=== PATIENT | male | born 1965 | race Caucasian/White ===

== ENCOUNTER 2016-10-09 08:18 | Emergency (ER) | payer MEDICARE, OTHER ==
[~2016-10-09] VITALS: Ht 182.9 cm; Wt 125.0 kg
[~2016-10-09 08:18] MED LIST: ALBU0.086 INH; AMLO5TAB22 PO; BACL20TA PO; BUDE3CAP PO; HUMI20KI SQ; KCL10C PO; LASI20TA PO; LISI-363 PO; MEDR4PAK3 PO; METF-324 PO; NORT10CA PO; NORV10TA PO; OMEP20TA39 PO; PERC5TAB12 PO; PRAV10 PO; PREV4POW; TIOT18I INH; ZOLP10TA3 PO
[2016-10-09 08:41] VITALS: BP 138/81; PULSE 61; RESP 20; TEMP 97.7; O2SAT 95
[2016-10-09] MEDS ORDERED: HUMI20KI SQ (08:46)
[2016-10-09] MEDS ORDERED: AMBI10TA PO (08:46)
--- NOTE | 2016-10-09 08:57 | PD ---
HPI Chief Complaint: Abdominal Pain Time Seen by Provider: 08:35 Travel History International Travel<30 days: No Contact w/Intl Traveler<30days: No Traveled to known affect area: No History of Present Illness HPI This patient complains of abdominal pain and constipation and nausea. He is worried about obstruction. He has history of Crohn's and has had multiple abdominal surgeries. Symptom severity is moderate. Duration one week. No alleviating factors. No fevers. 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) Tobacco Use: Yes (1 PPD) Substance Use: No Allergies-Medications (Allergen,Severity, Reaction): Coded Allergies: Morphine (Unverified Adverse Reaction, Unknown, AGITATION , 10/09/16) Reported Meds & Prescriptions Reported Meds & Active Scripts Active Reported [Albuterol Sulfate] Mg PO QID NEB Acidophilus/Pectin (Lactobacillus Acidophilus-Pect) 1 Cap Cap 1 PO BID [vitamin B Inj] 1 INJ Oxycodone-Acetaminophen 5-325 mg Tab 1 Tab PO Q6H PRN Baclofen 10 Mg Tab 10 Mg PO BID Omeprazole 20 Mg Tab 20 Mg PO DAILY Metformin (Metformin HCl) 1,000 Mg Tab 1,000 Mg PO BIDPC With meals Lisinopril 40 Mg Tab 40 Mg PO DAILY Pravastatin 40 Mg Tab 40 Mg PO DAILY Diltiazem (Diltiazem HCl) 120 Mg Tab 240 Mg PO DAILY Ambien (Zolpidem Tartrate) 10 Mg Tab 10 Mg PO HS PRN Humira 2-Pack Inj (Adalimumab 2-Pack Inj) 20 Mg/0.4 Ml Syr 20 Mg SQ Q14D Review of Systems General / Constitutional: No: Fever Eyes: No: Visual changes HENT: No: Headaches Cardiovascular: No: Chest Pain or Discomfort Respiratory: No: Shortness of Breath Gastrointestinal: Positive: Nausea, Abdominal Pain, Constipation Genitourinary: No: Dysuria Musculoskeletal: No: Pain Skin: No Rash Neurologic: No: Weakness Psychiatric: No: Depression Endocrine: No: Polydipsia Hematologic/Lymphatic: No: Easy Bruising Physical Exam Narrative GENERAL: Well-nourished, well-developed patient in no apparent distress. SKIN: Warm and dry. HEAD: Atraumatic. Normocephalic. EYES: Pupils equal and round. No scleral icterus. No injection or drainage. ENT: No nasal bleeding or discharge. Mucous membranes pink and moist. NECK: Trachea midline. No JVD. CARDIOVASCULAR: Regular rate and rhythm. No murmur appreciated. RESPIRATORY: No accessory muscle use. Clear to auscultation. Breath sounds equal bilaterally. GASTROINTESTINAL: Abdomen soft, mild left lower quadrant tenderness, no rebound or guarding. Hepatic and splenic margins not palpable. Prominent bowel sounds heard MUSCULOSKELETAL: No obvious deformities. No clubbing. No cyanosis. No edema. NEUROLOGICAL: Awake and alert. No obvious cranial nerve deficits. Motor grossly within normal limits. Normal speech. PSYCHIATRIC: Appropriate mood and affect; insight and judgment normal. Data Data Last Documented VS Vital Signs Date Time Temp Pulse Resp B/P Pulse Ox O2 Delivery O2 Flow Rate FiO2 10/09/16 09:09 96 Room Air 10/09/16 08:41 97.7 61 20 138/81 Orders Complete Blood Count With Diff (10/09/16 08:51) Comprehensive Metabolic Panel (10/09/16 08:51) Lipase (10/09/16 08:51) Prothrombin Time / Inr (Pt) (10/09/16 08:51) Act Partial Throm Time (Ptt) (10/09/16 08:51) Ct Abd/Pel W Iv Contrast(Rout) (10/09/16 08:51) Iv Access Insert/Monitor (10/09/16 08:51) Ecg Monitoring (10/09/16 08:51) Oximetry (10/09/16 08:51) NPO (10/09/16 08:51) Ondansetron Inj (Zofran Inj) (10/09/16 09:00) Sodium Chloride 0.9% Flush (Ns Flush) (10/09/16 09:00) Sodium Chlor 0.9% 1000 Ml Inj (Ns 1000 M (10/09/16 09:00) Iohexol 350 Inj (Omnipaque 350 Inj) (10/09/16 09:15) Labs Laboratory Tests Test 10/09/16 09:07 White Blood Count 6.5 TH/MM3 Red Blood Count 3.96 MIL/MM3 Hemoglobin 13.5 GM/DL Hematocrit 38.7 % Mean Corpuscular Volume 97.6 FL Mean Corpuscular Hemoglobin 34.1 PG Mean Corpuscular Hemoglobin 35.0 % Concent Red Cell Distribution Width 13.0 % Platelet Count 257 TH/MM3 Mean Platelet Volume 8.1 FL Neutrophils (%) (Auto) 55.5 % Lymphocytes (%) (Auto) 29.1 % Monocytes (%) (Auto) 9.3 % Eosinophils (%) (Auto) 5.2 % Basophils (%) (Auto) 0.9 % Neutrophils # (Auto) 3.6 TH/MM3 Lymphocytes # (Auto) 1.9 TH/MM3 Monocytes # (Auto) 0.6 TH/MM3 Eosinophils # (Auto) 0.3 TH/MM3 Basophils # (Auto) 0.1 TH/MM3 CBC Comment DIFF FINAL Differential Comment Prothrombin Time 10.7 SEC Prothromb Time International 1.0 RATIO Ratio Activated Partial 23.6 SEC Thromboplast Time Sodium Level 136 MEQ/L Potassium Level 4.2 MEQ/L Chloride Level 102 MEQ/L Carbon Dioxide Level 25.0 MEQ/L Anion Gap 9 MEQ/L Blood Urea Nitrogen 10 MG/DL Creatinine 1.10 MG/DL Estimat Glomerular Filtration 71 ML/MIN Rate Random Glucose 130 MG/DL Calcium Level 8.7 MG/DL Total Bilirubin 0.2 MG/DL Aspartate Amino Transf 33 U/L (AST/SGOT) Alanine Aminotransferase 55 U/L (ALT/SGPT) Alkaline Phosphatase 54 U/L Total Protein 7.1 GM/DL Albumin 3.6 GM/DL Lipase 164 U/L [facility] Medical Decision Making Medical Screen Exam Complete: Yes Emergency Medical Condition: Yes Medical Record Reviewed: Yes Differential Diagnosis Ileus, obstruction, colitis Narrative Course I have reviewed the patient's electronic medical record. Patient was last here December 2014 with a flare of Crohn's but had essentially negative CT IV placed I gave him 1 L normal saline IV and IV Zofran CBC is normal Metabolic profile is normal LFTs are normal Lipase is normal Coagulation studies are normal CT of abdomen and pelvis is normal with some no sign of inflammation or obstruction Patient stable for outpatient follow-up. He is seeing his doctor in 2 days. He has both nausea and pain medicine at home if needed Diagnosis Primary Impression: Abdominal pain Qualified Code: R10.84 - Generalized abdominal pain Additional Impression: Crohn disease Qualified Code: K50.80 - Crohn's disease of both small and large intestine without complication Additional Instructions: The patient was advised to follow up with their physician and return if they worsen. Med/Other Pt SpecificInfo: Other Disposition: 01 DISCHARGE HOME Condition: Stable Neftaly Hair MD Oct 09, 2016 08:56
[2016-10-09] MEDS ORDERED: ONDANSETRON HCL 4 MG/2 ML VIAL IVP ONE (09:00)
[2016-10-09] MEDS ORDERED: SODIUM CHLOR 0.9% 1000 ML INJ 1,000 ML IV ONE (09:00)
[2016-10-09] MEDS ORDERED: SODIUM CHLORIDE 0.9% FLUSH 5 ML FLUSH IVF PRN (09:00)
[2016-10-09] MEDS ORDERED: OXYC1TAB63 PO (09:05)
[2016-10-09] MEDS ORDERED: PRAV40TA2 PO (09:05)
[2016-10-09] MEDS ORDERED: METF1000 PO (09:05)
[2016-10-09] MEDS ORDERED: DILT120T PO (09:05)
[2016-10-09] MEDS ORDERED: BACL10TA PO (09:05)
[2016-10-09] MEDS ORDERED: LISI40TA PO (09:05)
[2016-10-09] MEDS ORDERED: OMEP20TA PO (09:05)
[2016-10-09] MEDS ORDERED: VITAMIN B (09:06)
[2016-10-09 09:09] VITALS: O2SAT 96
[2016-10-09] MEDS ORDERED: IOHEXOL 350 MG/ML 10 ML VIAL (for RAD DIAG) IV ONE (09:15)
[2016-10-09 09:17] LABS: AUTOMATED NEUTROPHIL # 3.6 TH/MM3 (1.8-7.7); BASOPHIL # 0.1 TH/MM3 (0-0.2); BASOPHIL % 0.9 % (0.0-2.0); EOSINOPHIL # 0.3 TH/MM3 (0-0.4); EOSINOPHIL % 5.2 % (0.0-4.0); HEMATOCRIT 38.7 % (39.0-51.0); HEMO FLAGS DIFF FINAL; LYMPH % 29.1 % (9.0-44.0); LYMPHOCYTE # 1.9 TH/MM3 (1.0-4.8); MEAN CELL VOLUME 97.6 FL (80.0-100.0); MEAN CORPUSCULAR HEMOGLOBIN 34.1 PG (27.0-34.0); MONO % 9.3 % (0.0-8.0); NEUT % 55.5 % (16.0-70.0); PLATELET COUNT 257 TH/MM3 (150-450); RED BLOOD COUNT 3.96 MIL/MM3 (4.50-5.90); WHITE BLOOD COUNT 6.5 TH/MM3 (4.0-11.0)
[2016-10-09] MEDS ORDERED: Albuterol Sulfate PO (09:23)
[2016-10-09] MEDS ORDERED: ACIDCAP2 PO (09:23)
--- NOTE | 2016-10-09 09:25 | RADRPT ---
EXAM DATE/TIME: 10/09/2016 09:08 [place] COMPARISON: CT ABDOMEN & PELVIS W CONTRAST, December 20, 2014, 23:18. INDICATIONS : Abdominal distention for two days. History of Crohns disease. Evaluate for possible obstruction. IV CONTRAST: 95 cc Omnipaque 350 (iohexol) IV ORAL CONTRAST: No oral contrast ingested. RADIATION DOSE: 16.48 CTDIvol (mGy) MEDICAL HISTORY : Hypertension. Crohns disease. Gastroesophageal reflux disease.Diabetes. SURGICAL HISTORY : Cholecystectomy. Orthopedic surgery. ENCOUNTER: Initial ACUITY: 2 days PAIN SCALE: 4/10 LOCATION: Bilateral abdomen/pelvis TECHNIQUE: Volumetric scanning of the abdomen and pelvis was performed. Using automated exposure control and ad justment of the mA and/or kV according to patient size, radiation dose was kept as low as reasonably achievable to obtain optimal diagnostic quality images. FINDINGS: LOWER LUNGS: The visualized lower lungs are clear. LIVER: Homogeneous density without lesion. There is no dilation of the biliary tree. Gallbladder is absent with clips in the gallbladder fossa. SPLEEN: Normal size without lesion. There is a punctate calcification. PANCREAS: Within normal limits. KIDNEYS: Normal in size and shape. There is no mass, stone or hydronephrosis. ADRENAL GLANDS: Within normal limits. VASCULAR: There is no aortic aneurysm. Minimal atherosclerotic disease is present within the right common iliac artery. BOWEL/MESENTERY: The stomach, small bowel, and colon demonstrate no acute abnormality. There is no free intraperitone al air or fluid. The appendix is normal. There is mild sigmoid diverticulosis. ABDOMINAL WALL: Within normal limits. RETROPERITONEUM: There is no lymphadenopathy. BLADDER: No wall thickening or mass. REPRODUCTIVE: Within normal limits. INGUINAL: There is no lymphadenopathy or hernia. MUSCULOSKELETAL: There has been prior lumbar spine surgery with hardware present. No acute osseous abnormality is visu alized. CONCLUSION: No acute finding is identified within the abdomen or pelvis. There are no findings to indicate bowel obstruction or inflammatory bowel disease. Carter Aleman MD on October 09, 2016 at 9:20 Board Certified Radiologist. This report was verified electronically.
[2016-10-09 09:32] LABS: PROTHROMBIN TIME - PATIENT 10.7 SEC (9.8-11.6)
[2016-10-09 09:35] LABS: APTT (PATIENT) 23.6 SEC (24.3-30.1)
[2016-10-09 09:36] LABS: ANION GAP 9 MEQ/L (5-15); AST (GOT) 33 U/L (15-37); BLOOD UREA NITROGEN 10 MG/DL (7-18); CHLORIDE 102 MEQ/L (98-107); GLOMERULAR FILTRATION RATE 71 ML/MIN (>89); POTASSIUM 4.2 MEQ/L (3.5-5.1); SODIUM (NA) 136 MEQ/L (136-145)
[2016-10-09 09:47] LABS: ALKALINE PHOSPHATASE 54 U/L (45-117); ALT (GPT) 55 U/L (12-78); TOTAL BILIRUBIN ADULT 0.2 MG/DL (0.2-1.0)
[2016-10-09 11:39] VITALS: BP 132/89
== END 2016-10-09 11:59 | disposition home or self-care (01) ==
LOC: NEPE 08:18
DX: R10.84 Generalized abdominal pain (principal); K50.80 Crohn's disease of both small and large intestine without complications; J45.909 Unspecified asthma, uncomplicated; E78.00 Pure hypercholesterolemia, unspecified; E11.9 Type 2 diabetes mellitus without complications; I10 Essential (primary) hypertension; Z87.442 Personal history of urinary calculi; F17.210 Nicotine dependence, cigarettes, uncomplicated
CPT/HCPCS: 74177; 80053; 83690; 85025; 85610; 85730; 96361; 96374; 99284; J2405; J7030; Q9967